=== PATIENT | female | born 1980 | race Caucasian/White ===

== ENCOUNTER → 2018-06-20 | Outpatient (REF) | payer OTHER ==
[~2018-06-20] MED LIST: CALCTAB97 PO; FAMO20TA PO; MULT1CHW21 PO; PERCOCET PO; VITA100018 PO; VITA100067 PO; XANA0.5T PO
== END ==
LOC: M LAB LCGH 10:10
PROVIDERS: ATTEND Nurse Practitioner Family
DX: L91.8 Other hypertrophic disorders of the skin (principal)

== ENCOUNTER 2019-04-19 05:36 | Day surgery (SDC) | payer OTHER ==
[~2019-04-19] VITALS: Ht 167.6 cm; Wt 100.2 kg
[~2019-04-19 05:36] MED LIST changes: +MULTCAP PO; +OMEP40CA97 PO; +TRAM50TA2 PO; +VITA100T59 PO; +VITA200028 PO
[2019-04-19] MEDS ORDERED: LIDOCAINE 1% MDV 20ML VIAL ONE (05:37)
[2019-04-19] MEDS ORDERED: dexameTHASONE 10 MG/1 ML VIAL PRES.FREE (J1100) ONE (05:37)
[2019-04-19] MEDS ORDERED: ROPIvacaine 0.5% 30 ML INJECTION (J2795 PER 1MG) ONE (05:37)
[2019-04-19] MEDS ORDERED: ceFAZolin SOD 2 GM in IV 1 EA IV ONE (06:00)
[2019-04-19] MEDS ORDERED: LR 1,000 ML IV ONE (06:00)
[2019-04-19] MEDS ORDERED: MIDAZOLAM INJ 2 MG/2 ML VIAL (J2250) As Ordered ONE ×2 (06:37→06:49)
[2019-04-19] MEDS ORDERED: fentaNYL 100 MCG/2 ML INJECTION (J3010) As Ordered ONE (06:37)
[2019-04-19] MEDS ORDERED: EPINEPHrine 1MG/ML INJ 30ML MD-VIAL As Ordered ONE (06:42)
[2019-04-19] MEDS ORDERED: propofoL 200 MG/20 ML VIAL As Ordered ONE (06:43)
[2019-04-19] MEDS ORDERED: LIDOCAINE 2% INJ 100 MG/5 ML SDV (FOR ANES.) As Ordered ONE (06:43)
[2019-04-19] MEDS ORDERED: ONDANSETRON 4MG/2ML VIAL (J2405) As Ordered ONE (06:43)
[2019-04-19] MEDS ORDERED: ROCURONIUM BROMIDE 50 MG/5 ML VIAL As Ordered ONE (06:43)
[2019-04-19] MEDS ORDERED: dexameTHASONE 4 MG/ML 1ML VIAL (J1100) As Ordered ONE (06:43)
[2019-04-19] MEDS ORDERED: ACETAMINOPHEN 1000MG 100ML IV BTL (OFIRMEV) (J0131 PER 10MG) As Ordered ONE (06:44)
[2019-04-19] MEDS ORDERED: fentaNYL 250 MCG/5 ML INJECTION (J3010) As Ordered ONE (06:49)
[2019-04-19] MEDS ORDERED: LIDOCAINE 1% SDV INJ 30 ML VIAL As Ordered ONE (07:56)
[2019-04-19] MEDS ORDERED: fentaNYL 100 MCG/2 ML INJECTION (J3010) IV ONE (08:00)
[2019-04-19] MEDS ORDERED: MIDAZOLAM INJ 2 MG/2 ML VIAL (J2250) IV ONE (08:00)
[2019-04-19] MEDS ORDERED: GLYCOPYRROLATE INJ 0.2 MG/ML 2 ML VIAL As Ordered ONE (08:21)
[2019-04-19] MEDS ORDERED: METOCLOPRAMIDE INJ 10MG/2ML VIAL (J2765) As Ordered ONE (08:47)
[2019-04-19] MEDS ORDERED: SUGAMMADEX SODIUM 500 MG/5 ML VIAL (BRIDION) As Ordered ONE ×2 (09:58→11:09)
[2019-04-19] MEDS ORDERED: LR 1,000 ML IV SCH ×2 (11:00→12:00)
[2019-04-19] MEDS ORDERED: ONDANSETRON 4MG/2ML VIAL (J2405) IV PRN (11:00)
[2019-04-19] MEDS ORDERED: fentaNYL 100 MCG/2 ML INJECTION (J3010) IV PRN (11:00)
[2019-04-19] MEDS ORDERED: oxyCODONE 5MG TAB PO PRN (11:00)
[2019-04-19] MEDS ORDERED: HYDROMORPHONE HCL 0.5 MG/ 0.5 ML SYRINGE (J1170 PER 1) IV PRN (11:00)
[2019-04-19 12:17] VITALS: BP 125/74
--- NOTE | 2019-04-19 19:23 | RO ---
DATE OF PROCEDURE: 04/19/2019 PREOPERATIVE DIAGNOSES: 1. Right shoulder high-grade partial thickness rotator cuff tear. 2. Right shoulder superior labral tear with biceps tendonitis. 3. Right shoulder impingement. POSTOPERATIVE DIAGNOSES: 1. Right shoulder high-grade partial thickness rotator cuff tear. 2. Right shoulder superior labral tear with biceps tendonitis. 3. Right shoulder impingement. PROCEDURE: 1. Right shoulder arthroscopic double row rotator cuff repair. 2. Right shoulder arthroscopic subacromial decompression and chondroplasty. 3. Right shoulder open subpectoral biceps tenodesis. SURGEON: Dr. Asa Pressley CARTON STENCILER: KODY Kirby ANESTHESIA: General with preoperative nerve block. IV FLUIDS: Lactated Ringer's. ESTIMATED BLOOD LOSS: 10 mL. IMPLANTS: Arthrex proximal biceps button times one and Arthrex 4.75 mm PEEK SwiveLock anchor times four. CLOSURE: Monocryl and nylon. DESCRIPTION OF PROCEDURE: Patient identified in the preoperative holding. The right shoulder was marked by myself. She had an interscalene nerve block. She was brought to the operating room, placed supine on a well-padded operating room (OR) table with a beanbag. General anesthesia induced. Exam under anesthesia revealed a 180 degrees forward flexion and 90 of external rotation. No increased anterior-posterior translation. She was then placed in the left side down lateral decubitus position with an axillary roll and all bony prominences well padded. Bilateral Venodyne boots for deep vein thrombosis (DVT) prophylaxis. She was secured to the OR table. Then, the right arm was placed into the Arthrex STaR Sleeve, lateral decubitus traction paulson, 10 pounds of traction. The right shoulder was then prepped and draped in a normal sterile fashion with Chloraprep. Prior to incision, she received appropriate IV antibiotics. A time-out was then performed per hospital protocol. Blaire Galeas was present for the entire procedure and participated in all essential portions of the procedure. This included patient positioning and draping, holding the arthroscope, assisting with retrieving sutures arthroscopically, assisting with using the mallet and awl and placement of anchors and cutting sutures. She also assisted with holding retractors during the biceps tenodesis and whip stitching the tendon. She also did the wound closure dressing and sling. The right shoulder was insufflated with lactated Ringer's. A standard posterior viewing portal made with 11-blade. 30 degree arthroscope was introduced into the joint and glenohumeral was in excellent condition except some mild fraying adjacent to the subscapularis. There was tearing at the biceps labral anchor and tendinopathy of the intra-articular portion of the biceps. No obvious tearing of the subscapularis (subscap). The intra-articular portion of the rotator cuff appeared to be in excellent condition. An anterior working portal was established of the rotator interval and the long head of biceps was brought into the joint where there was some longitudinal split tearing. I debrided the superior labrum with the shaver, and there was tearing extending from the labrum up into the biceps. Based on these intraoperative findings and her preoperative symptoms, I performed a tenotomy with the meniscal biter and then debrided the stump with the shaver. Some soft tissue from the rotator interval was debrided with the shaver, and this gave a clear look at the subscapularis, and there was no lift off or tearing. The supraspinatus and infraspinatus were then probed. There was no intra-articular tearing there. We then proceeded with an open biceps tenodesis. An incision was made with 15 blade. It was lateral to the axilla after injecting 10 mL of 1% lidocaine without epinephrine. Subcutaneous dissection with electrocautery and Metzenbaum scissors. Biceps fascia was opened with scissors, and the long head of the biceps was easily dissected out. A running locking whip stitch was then placed with the Arthrex FiberLoop and then excess tendon was cut and sent to pathology. Sutures were loaded through the biceps button per routine. [place] tip drill bit was then used to create a unicortical socket within the bicipital groove and irrigation used to remove bony debris. Button was passed through the drill hole on the fabric finisher. The sutures were toggled which flipped the button and nicely reduced the tendon along the groove. I then used the curve-free needle to pass one limb of FiberWire back through the tendon and knots were tied by hand to lock the construct in place. This nicely restored the resting tension. Incision was extensively irrigated, then closed in a layered fashion with #2-0 Vicryl, 2-0 Vicryl and a running Monocryl. At the end of the case, Steri-Strips were placed. The arthroscope was now placed in the subacromial space where there was moderate bursitis. Lateral working portal was established, bursectomy performed with shaver and cautery. There was a very large spur at the anterolateral acromion, and a bur was used to perform a formal acromioplasty. The anterior half of the supraspinatus was intact. However, there was very high-grade bursal-sided tearing of the posterior supraspinatus and the anterior infraspinatus. On probing the switching stick, this was felt to be at least a 23% tear. This almost entered the joint. This required a repair. Cautery was then used to subperiosteally elevate the tendon off bone and complete the tear. Shaver and cautery used to remove poor quality tendon tissue. Ring curette was then used to clear soft tissue off the tuberosity, create a bleeding surface. Rotator cuff grasper was then used to manipulate the tendon and determine the appropriate configuration of the repair. I then proceeded with a SpeedBridge rotator cuff repair. Percutaneously placed two 4.75 mm PEEK SwiveLock anchors off the articular surface, one anterior, one posterior. They both had excellent fixation. The tape sutures were passed wedged together. I then placed the FiberLink through the far anterior portion of the tear and then I passed the eyelet stitches from the posterior anchor through the far posterior portion of the tear, tied those using alternating half hitches with the knot pusher to help avoid a dog ear. The cannula was used to determine the appropriate place for lateral anchors and then one limb from each medial anchor was brought out with the FiberLink and placed into a 475 SwiveLock anchor. Socket was created with a punch, the anchor was docked, sutures tensioned, anchor inserted by hand with excellent fixation. Then, the remaining tapes plus the eyelet stitches posteriorly were brought out through the last SwiveLock anchor. Those same steps were repeated in the posterolateral tuberosity. This completed the double row rotator cuff repair. There were no dog ears. There was no lift off or buckling. Shoulder was irrigated and drained. Portals closed with nylon suture. Bulky sterile dressing applied. She was then carefully placed into her ARC 2 sling, extubated, and transferred to the post-anesthesia care unit (PACU) in stable condition.
== END 2019-04-19 12:29 | disposition home or self-care (01) ==
LOC: M SDC 05:36
PROVIDERS: ATTEND Orthopaedic Surgery
DX: M75.111 Incomplete rotator cuff tear or rupture of right shoulder, not specified as traumatic (principal); M75.21 Bicipital tendinitis, right shoulder; S43.431A Superior glenoid labrum lesion of right shoulder, initial encounter; K21.9 Gastro-esophageal reflux disease without esophagitis; F17.290 Nicotine dependence, other tobacco product, uncomplicated; Z88.8 Allergy status to other drugs, medicaments and biological substances; Z79.899 Other long term (current) drug therapy; Z98.84 Bariatric surgery status; F41.9 Anxiety disorder, unspecified; F32.9 Major depressive disorder, single episode, unspecified; Y92.89 Other specified places as the place of occurrence of the external cause
CPT/HCPCS: 23430; 29826; 29827; 64415; 88304; C1713; J0131; J0690; J1100; J2250; J2405; J2765; J2795; J3010